=== PATIENT | male | born 1955 | race African-American/Black ===

== ENCOUNTER 2022-07-03 22:20 | Emergency (ER) | payer SELFPAY ==
[~2022-07-03] VITALS: Ht 190.5 cm; Wt 90.0 kg
[2022-07-03] MEDS ORDERED: TETANUS, DIPHTHERIA, PERTUSSIS VAC/PF 0.5ML (>10YR OLD) IM ONE (23:15)
[2022-07-03] MEDS ORDERED: CEFAZOLIN 1000MG PREMIX 50 ML IV ONE (23:15)
[2022-07-03] MEDS ORDERED: BACITRACIN ZINC OINT UDPKT TOP ONE (23:15)
[2022-07-04] MEDS ORDERED: AMOX1TAB16 MT (00:37)
[2022-07-04 01:13] VITALS: BP 132/89
== END 2022-07-04 01:29 | disposition home or self-care (01) ==
LOC: ER 22:20
DX: S61.452A Open bite of left hand, initial encounter (principal); R55 Syncope and collapse; W54.0XXA Bitten by dog, initial encounter; Y93.89 Activity, other specified; Y92.89 Other specified places as the place of occurrence of the external cause; Y99.8 Other external cause status
CPT/HCPCS: 36415; 73120; 86140; 90471; 90715; 93005; 96365; 99284; J0690